=== PATIENT | female | born 1945 ===

== ENCOUNTER 2017-05-03 18:35 | Inpatient (IN) | payer OTHER, MEDICAID ==
[2017-05-03] MEDS ORDERED: Digoxin 500 mcg/2ml (0.5 mg/2ml) Inj ONE (18:58)
[2017-05-03] MEDS ORDERED: Sodium Chloride 0.9% 1,000 ML IV STA (18:58)
[2017-05-03] MEDS ORDERED: Digoxin 500 mcg/2ml (0.5 mg/2ml) Inj IVP STA (18:59)
[2017-05-03 19:27] LABS: BASO # 0.1 K/uL (0.0-0.2); BASO % 0.6 % (0.0-2.0); EOS # 0.1 K/uL (0.0-0.7); EOS % 0.5 % (0.0-4.0); HEMATOCRIT 36.3 % (34.0-47.0); LYMPH # 2.5 K/uL (1.0-4.3); LYMPH % 24.9 % (20.0-40.0); MEAN CELL VOLUME 86.3 fl (81.0-99.0); MEAN CORPUSCULAR HEMOGLOBIN 28.5 pg (27.0-31.0); MEAN PLATELET VOLUME 8.3 fl (7.2-11.7); MONO # 0.7 K/uL (0.0-0.8); MONO % 6.9 % (0.0-10.0); NEUT # 6.8 K/uL (1.8-7.0); NEUT % 67.1 % (50.0-75.0); NRBC % 0.1 % (0.0-0.0); RED CELL DISTRIBUTION WIDTH 12.3 % (11.5-14.5); WHITE BLOOD COUNT 10.2 K/uL (4.8-10.8)
[2017-05-03 19:37] LABS: ALB/GLOB RATIO 1.4 (1.0-2.1); ALKALINE PHOSPHATASE 87 U/L (38-126); ALT/SGPT 28 U/L (9-52); AST/SGOT 29 U/L (14-36); BILIRUBIN,TOTAL 0.5 mg/dl (0.2-1.3); BLOOD UREA NITROGEN 16 mg/dl (7-17); CALCIUM 9.3 mg/dL (8.4-10.2); CARBON DIOXIDE 24 mmol/L (22-30); CHLORIDE 101 mmol/L (98-107); GFR AFRICAN-AMERICAN 54; GLUCOSE,RANDOM 247 mg/dL (65-105); POTASSIUM 3.7 MMOL/L (3.6-5.0); SODIUM 136 mmol/l (132-148); TOTAL PROTEIN 7.1 G/DL (6.3-8.2)
--- NOTE | 2017-05-03 19:41 | ED PDOC ---
HPI: Chest Pain Time Seen by Provider: 05/03/17 18:57 Chief Complaint (Nursing): Palpitations Chief Complaint (Provider): Palpitations History Per: Patient History/Exam Limitations: no limitations Onset/Duration Of Symptoms: Hrs Current Symptoms Are (Timing): Still Present Additional Complaint(s): Kell Villela, a 72 year old female, who has a past medical histroy of diabetes, hyperlipidemia and stroke presents to the ED with palpitations. The patient states that she was at religious for several hours when her symptoms developed. She reports that she is eating, drinking and urinating okay. Denies nausea, vomiting, chest pain, shortness of breath. PMD: Neha Faustin - Risk Factors TAD Risk Factors: Pos: Hypertension Past Medical History Reviewed: Historical Data, Nursing Documentation, Vital Signs Vital Signs: Last Vital Signs Temp 97.6 F 05/05/17 16:07 Pulse 69 05/05/17 16:07 Resp 20 05/05/17 16:07 BP 120/76 05/05/17 16:07 Pulse Ox 97 05/05/17 16:07 - Medical History PMH: Asthma, Atrial Fibrillation, CHF, HTN, Hyperlipidemia, Osteoporosis - Surgical History Surgical History: No Surg Hx - Family History Family History: States: Unknown Family Hx - Social History Current smoker - smoking cessation education provided: No Ex-Smoker (has not smoked in the last 12 months): No Alcohol: None Drugs: Denies - Home Medications Home Medications: Ambulatory Orders Medication Instructions Recorded Calcium Carbonate/Vitamin D3 1 tab PO DAILY 05/03/17 [Calcium 600 + Vit D Tablet] Metoprolol Succinate 50 mg PO DAILY 05/03/17 Multivitamin [Multivitamins] 1 each PO DAILY 05/03/17 Pantoprazole Sodium [Protonix] 40 mg PO DAILY 05/03/17 Albuterol Sulfate [Proair 90 mcg IH PRN 05/05/17 Respiclick] Alendronate [Fosamax] 70 mg PO QWK #4 tab 05/05/17 Apixaban [Eliquis] 5 mg PO BID #60 tab 05/05/17 Aspirin [Ecotrin] 81 mg PO DAILY #30 tabec 05/05/17 Atorvastatin [Lipitor] 80 mg PO HS #30 tab 05/05/17 Chlorthalidone [Hygroton] 25 mg PO DAILY #30 tab 05/05/17 Fluticasone Propionate [Flovent 1 spray IH DAILY #30 blst.w.dev 05/05/17 Diskus] GlipiZIDE [Glucotrol] 5 mg PO DAILY #30 tab 05/05/17 Losartan [Cozaar] 25 mg PO DAILY #30 tab 05/05/17 Metformin HCl [Glucophage] 1,000 mg PO BID #60 tablet 05/05/17 Metoprolol Succinate [Toprol XL] 50 mg PO DAILY #30 tab 05/05/17 Multimineral/Multivitamin 1 tab PO DAILY tab 05/05/17 [Therapeutic-M Tab] Nitroglycerin [Nitrostat] 0.4 mg SL PRN 05/05/17 - Allergies Allergies/Adverse Reactions: Allergies Allergy/AdvReac Type Severity Reaction Status Date / Time pollen extracts Allergy ITCHING Verified 05/03/17 18:38 Review of Systems ROS Statement: Except As Marked, All Systems Reviewed And Found Negative Constitutional: Positive for: Weakness Cardiovascular: Positive for: Palpitations, Light Headedness. Negative for: Chest Pain Respiratory: Negative for: Shortness of Breath Gastrointestinal: Negative for: Nausea, Vomiting Physical Exam - Reviewed Nursing Documentation Reviewed: Yes Vital Signs Reviewed: Yes - Physical Exam Appears: Positive for: Non-toxic, No Acute Distress Head Exam: Positive for: ATRAUMATIC, NORMAL INSPECTION, NORMOCEPHALIC Skin: Positive for: Normal Color, Warm, Dry. Negative for: Rash Eye Exam: Positive for: Normal appearance, EOMI, PERRL. Negative for: Periorbital tenderness ENT: Positive for: Normal ENT Inspection. Negative for: Nasal Congestion, Tonsillar Exudate Neck: Positive for: Normal, Painless ROM, Supple Cardiovascular/Chest: Positive for: Regular Rate, Rhythm (Variable between 130- 180). Negative for: Tachycardia Respiratory: Positive for: Normal Breath Sounds. Negative for: Rales, Rhonchi, Wheezing, Respiratory Distress Gastrointestinal/Abdominal: Positive for: Normal Exam, Bowel Sounds, Soft. Negative for: Guarding, Rebound Back: Positive for: Normal Inspection. Negative for: L CVA Tenderness, R CVA Tenderness Extremity: Positive for: Normal ROM. Negative for: Tenderness, Pedal Edema, Deformity, Swelling Lymphatic: Positive for: Normal Exam. Negative for: Adenopathy Neurologic/Psych: Positive for: Alert, Oriented, Gait - Laboratory Results Result Diagrams: 05/05/17 05:30 05/05/17 05:30 - ECG O2 Sat by Pulse Oximetry: 98 (RA) Pulse Ox Interpretation: Normal - Critical Care Total Time (In Min): 30 Comments: initial evaluation of patient with symptomatic tachycardia Medical Decision Making Medical Decision Makin Initial Impression: 72 year old female presenting with rapid atrial fibrillation Initial Plan: * EKG * CMP * Thyroid Stimulating hormone * Troponin * Udip * CBC * Partial thromboplastin * Prothrombin time * CXR * Lanoxin 0.5mg IVP * NS 1000mls IV 1000mls/hr * Accucheck * Reevaluation Patient will be endorsed to Dr. Kevin at 1900. Scribe Attestation Documented by Rita Donaldson acting as a scribe for Zoe Lemos MD. Provider Attestation All medical record entries made by the Scribe were at my direction and personally dictated by me. I have reviewed the chart and agree that the record accurately reflects my personal performance of the history, physical exam, medical decision making, and the department course for this patient. I have also personally directed, reviewed, and agree with the discharge instructions and disposition. Disposition - Clinical Impression Clinical Impression: Palpitations, Supraventricular arrhythmia - Patient ED Disposition Is Patient to be Admitted: Transfer of Care Counseled Patient/Family Regarding: Studies Performed - Disposition Disposition: Transfer of Care Disposition Time: 19:00 Condition: STABLE Patient Signed Over To: Debra Kevin Present On Arrival: None
[2017-05-03 19:43] LABS: PARTIAL THROMBOPLASTIN TIME 27.9 Seconds (25.6-37.1)
--- NOTE | 2017-05-03 20:03 | ED PDOC ---
- Laboratory Results Result Diagrams: 05/03/17 19:16 05/03/17 19:16 - ECG O2 Sat by Pulse Oximetry: 98 (RA) Pulse Ox Interpretation: Normal Medical Decision Making Medical Decision Making: Patient signed out to provider at [address] Lemos pending labs and final ED disposition. 2105 Sugars are slightly elevated. Patient currently on plavix but no other anticoagulants. Patent is currently stil in Afib around 120bpm. Cardizem will be ordered for the patient. All her doctor's are in [place] therefore will be admitted under medical service. Patient reports that she feels better than she did earlier. 2158 Patient is back in normal sinus rhythm at 74bpm. Scribe Attestation Documented by Rita Donaldson acting as a scribe for Debra Kevin MD. Provider Attestation All medical record entries made by the Scribe were at my direction and personally dictated by me. I have reviewed the chart and agree that the record accurately reflects my personal performance of the history, physical exam, medical decision making, and the department course for this patient. I have also personally directed, reviewed, and agree with the discharge instructions and disposition. Disposition - Clinical Impression Clinical Impression: Palpitations, Supraventricular arrhythmia - POA Present On Arrival: None - Disposition Disposition: Admitted as In-Patient Disposition Time: 20:00 Condition: STABLE
[2017-05-03 20:12] LABS: THYROID STIMULATING HORMONE 1.35 mIU/ML (0.46-4.68)
[2017-05-03] MEDS ORDERED: Enoxaparin 100 mg Syringe SC STA (21:15)
--- NOTE | 2017-05-03 22:02 | CP.PCM.HP ---
History of Present Illness - History of Present Illness History of Present Illness: PCP: Neha Faustin (Not on staff Chief complaint: Palpitations HPI: 72 years old female who did not taken any of her medications on the day of admission, except Aspirin, came with sudden unset of severe Palpitations at her home after returning from a [employer]. She referred feeling very hot with chest pressure and SOB. The palpitation was not relieved with her normal method of deep inspiration, so the EMS was called. The patient has hx of DM II, HTN, CHF, CAD and Atrial Fibrillation for which her Anticoagulant was stopped. She last saw her Doctor 2 days ago and was given a new prescription for anticoagulant. In the ED her Heart Rate was 160s. She was given IV Digoxin, Bolus Cardizem. Her heart rate reduced and the A Fib converted to Sinus rhythm. PMH: Asthma, A Fib; CHF; HTN; CAD: HLD; Osteoporosis; GERD; Osteoporesis; DM II; PSH: Right Total Shoulder Replacement SH: Never Smoked; No alcohol ingestion; No illegal drug use; Live with Daughters ; ambulate with Cane FH: States: Unknown Family Hx Allergies: NKDA Pollen extracts Present on Admission - Present on Admission Any Indicators Present on Admission: Yes History of DVT/PE: No History of Uncontrolled Diabetes: Yes Urinary Catheter: No Decubitus Ulcer Present: No Review of Systems - Constitutional Constitutional: Headache. absent: Anorexia, Chills, Fever, Lethargy - EENT Eyes: Requires Corrective Lenses. absent: Diplopia, Floaters, Photophobia, Sees Flashes Ears: absent: Decreased Hearing, Ear Pain, Tinnitus Nose/Mouth/Throat: absent: Epistaxis, Nasal Congestion, Nasal Discharge, Sinus Pain, Sinus Pressure - Cardiovascular Cardiovascular: Dyspnea. absent: Edema Additional comments: Chest pressure - Respiratory Respiratory: Dyspnea. absent: Cough, Wheezing, Chest Congestion - Gastrointestinal Gastrointestinal: Diarrhea. absent: Nausea, Vomiting - Genitourinary Genitourinary: absent: Dysuria, Flank Pain, Hematuria, Urinary Frequency, Freq UTI - Musculoskeletal Musculoskeletal: Arthralgias, Back Pain, Numbness. absent: Joint Swelling, Muscle Weakness - Integumentary Integumentary: absent: Pruritus, Rash, Skin Ulcer, Sores, Striae, Swelling - Neurological Neurological: Numbness, Headaches, Paresthesias. absent: Confusion, Focal Weakness, Weakness Additional comments: Numbness to left chin for few days - Psychiatric Psychiatric: absent: Depression, Panic Attacks - Endocrine Endocrine: absent: Palpitations, Polydipsia, Polyphagia, Polyuria - Hematologic/Lymphatic Hematologic: absent: Easy Bleeding, Easy Bruising Past Patient History - Past Medical History & Family History Past Medical History?: Yes - Past Social History Smoking Status: Never Smoked Chewing Tobacco Use: No Cigar Use: No Alcohol: None Drugs: Denies Home Situation {Lives}: With Family - CARDIAC Hx Atrial Fibrillation: Yes Hx Congestive Heart Failure: Yes Hx Hypertension: Yes - PULMONARY Hx Asthma: Yes - NEUROLOGICAL Hx Neurological Disorder: No - HEENT Hx Cataracts: No - RENAL Hx Chronic Kidney Disease: No - ENDOCRINE/METABOLIC Hx Diabetes Mellitus Type 2: Yes - HEMATOLOGICAL/ONCOLOGICAL Hx Blood Transfusions: No - INTEGUMENTARY Hx Dermatological Problems: No - MUSCULOSKELETAL/RHEUMATOLOGICAL Hx Back Pain: Yes Hx Osteoporosis: Yes Other/Comment: Compressed Lumbar spine - GASTROINTESTINAL Hx Gastroesophageal Reflux: Yes - GENITOURINARY/GYNECOLOGICAL Hx Genitourinary Disorders: No - PSYCHIATRIC Hx Psychophysiologic Disorder: No Hx Substance Use: No - SURGICAL HISTORY Other/Comment: Right shoulder replacement - ANESTHESIA Hx Anesthesia: Yes Hx Anesthesia Reactions: No Meds Allergies/Adverse Reactions: Allergies Allergy/AdvReac Type Severity Reaction Status Date / Time pollen extracts Allergy ITCHING Verified 05/03/17 18:38 Physical Exam - Constitutional Appears: No Acute Distress - Head Exam Head Exam: ATRAUMATIC, NORMAL INSPECTION, NORMOCEPHALIC - Eye Exam Eye Exam: EOMI, Normal appearance Pupil Exam: NORMAL ACCOMODATION, PERRL - ENT Exam ENT Exam: Mucous Membranes Moist, Normal Exam, Normal External Ear Exam - Neck Exam Neck exam: Positive for: Full Rom, Normal Inspection. Negative for: Lymphadenopathy, Tenderness - Respiratory Exam Respiratory Exam: Clear to Auscultation Bilateral. absent: Rales, Rhonchi, Wheezes - Cardiovascular Exam Cardiovascular Exam: REGULAR RHYTHM, RRR, +S1, +S2. absent: Gallop, JVD - GI/Abdominal Exam GI & Abdominal Exam: Normal Bowel Sounds, Soft. absent: Mass, Organomegaly, Tenderness - Rectal Exam Rectal Exam: Deferred - Extremities Exam Extremities exam: Positive for: full ROM, normal inspection - Back Exam Back exam: NORMAL INSPECTION. absent: CVA tenderness (L), CVA tenderness (R) - Neurological Exam Neurological exam: Alert, CN II-XII Intact, Oriented x3, Reflexes Normal - Psychiatric Exam Psychiatric exam: Anxious, Depressed, Flat Affect, Normal Affect, Normal Mood - Skin Skin Exam: Dry, Intact, Normal Color, Warm Results - Vital Signs Recent Vital Signs: Last Vital Signs Temp 98.0 F 05/03/17 18:38 Pulse 87 05/03/17 21:35 Resp 17 05/03/17 21:35 BP 144/87 05/03/17 21:35 Pulse Ox 98 05/03/17 21:59 - Labs Result Diagrams: 05/03/17 19:16 05/03/17 19:16 Labs: Laboratory Results - last 24 hr 05/03/17 05/03/17 05/03/17 19:16 19:16 19:16 WBC 10.2 RBC 4.21 Hgb 12.0 Hct 36.3 MCV 86.3 MCH 28.5 MCHC 33.0 RDW 12.3 Plt Count 233 MPV 8.3 Neut % (Auto) 67.1 Lymph % (Auto) 24.9 [place] % (Auto) 6.9 Eos % (Auto) 0.5 Baso % (Auto) 0.6 Neut # 6.8 Lymph # 2.5 [place] # 0.7 Eos # 0.1 Baso # 0.1 PT 11.3 INR 1.1 APTT 27.9 Sodium 136 Potassium 3.7 Chloride 101 Carbon Dioxide 24 Anion Gap 15 BUN 16 Creatinine 1.2 Est GFR ( Amer) 54 Est GFR (Non-Af Amer) 44 Random Glucose 247 H Calcium 9.3 Total Bilirubin 0.5 AST 29 ALT 28 Alkaline Phosphatase 87 Troponin I < 0.0120 Total Protein 7.1 Albumin 4.1 Globulin 3.0 Albumin/Globulin Ratio 1.4 TSH 3rd Generation 1.35 - EKG Data EKG comments: 1. EKG Atrial Fibrillation 162/min 2. EKG NSR 74/min - Imaging and Cardiology Chest x-ray Status: Image reviewed by me Additional comment: No infiltrate Assessment & Plan - Assessment and Plan (Free Text) Assessment: #. Atrial Fibrillation with Rapid ventricular Rate #. HTN #. DM II with Hyperglycemia #. GERD #. CAD Plan: 72 years old female with hx of A Fib, who has not taken any of her medications today except Aspirin, comes with sudden unset of severe Palpitations associated with SOB and chest pressure, at her home after returning from a [employer]. In the ED her Heart Rate was 160s. She was given IV Digoxin, Bolus Cardizem. Her heart rate reduced and the A Fib converted to Sinus rhythm. #. Atrial Fibrillation with Rapid ventricular Rate, now converted to Sinus Rhythm - Consult Dr Husain - Observe in Telemetry - Therapeutic Lovenox ( Family has Prescription to buy Anticoagulant) -Metoprolol 50mg PO Daily -Troponin - ECHO #. HTN - Metoprolol/Cozaar #. DM II with Hyperglycemia - Diabetic Diet - Glucotrol/Metformin - Regular Insulin Sliding Scale #. GERD - Protonix #. CAD - ASA - lipitor - Plavix - Metformin #. DVT prophylaxis- Patient on Lovenox #. Code Status: Full - Date & Time Date: 05/03/17 Time: 22:02
[2017-05-03 22:18] LABS: RBC URINE 3 /hpf (0-3); URINE BILIRUBIN NEGATIVE (NEGATIVE); URINE BLOOD NEGATIVE (NEGATIVE); URINE COLOR STRAW (YELLOW); URINE GLUCOSE (UA) 50 mg/dL (Normal); URINE KETONE NEGATIVE (NEGATIVE); URINE LEUKOCYTE ESTERASE SMALL Leu/uL (Negative); URINE PROTEIN NEGATIVE (NEGATIVE); URINE UROBILINOGEN 0.2-1.0 mg/dL (0.2-1.0); WBC URINE 9 /hpf (0-5)
[2017-05-03] MEDS ORDERED: Metoprolol Succinate 50 mg XL Tab PO SCH (23:02)
[2017-05-03] MEDS ORDERED: ALENDRONATE 70 MG TAB PO SCH (23:15)
[2017-05-03] MEDS ORDERED: Patient's Own Med (Atorvastatin [Lipitor] 80 MG) PO SCH (23:15)
[2017-05-04] MEDS ORDERED: Pneumococcal 23-Valent Vaccine IM ONE (06:00)
[2017-05-04 06:07] LABS: BASO # 0.1 K/uL (0.0-0.2); BASO % 0.8 % (0.0-2.0); EOS # 0.1 K/uL (0.0-0.7); EOS % 1.2 % (0.0-4.0); LYMPH # 2.4 K/uL (1.0-4.3); MEAN CELL VOLUME 87.5 fl (81.0-99.0); MEAN CORPUSCULAR HEMOGLOBIN 28.2 pg (27.0-31.0); MEAN CORPUSCULAR HGB CONC 32.3 g/dL (33.0-37.0); MEAN PLATELET VOLUME 7.7 fl (7.2-11.7); MONO # 0.4 K/uL (0.0-0.8); MONO % 7.4 % (0.0-10.0); NEUT # 3.1 K/uL (1.8-7.0); NEUT % 50.6 % (50.0-75.0); NRBC % 0.1 % (0.0-0.0); RED CELL DISTRIBUTION WIDTH 12.4 % (11.5-14.5); WHITE BLOOD COUNT 6.1 K/uL (4.8-10.8)
--- NOTE | 2017-05-04 08:11 | RAD ---
PROCEDURE: CHEST RADIOGRAPH, 1 VIEW HISTORY: palpitations COMPARISON: None available. FINDINGS: LUNGS: Clear. PLEURA: No pneumothorax or pleural fluid seen. CARDIOVASCULAR: No radiographic findings to suggest acute or significant cardiovascular disease. OSSEOUS STRUCTURES: No significant abnormalities. Incompletely visualize right shoulder prosthesis. VISUALIZED UPPER ABDOMEN: Normal. OTHER FINDINGS: None. IMPRESSION: No active disease. No preliminary report provided by emergency department personnel.
[2017-05-04] MEDS: Enoxaparin 100 mg Syringe SC SCH ×3 (08:36→21:16)
[2017-05-04] MEDS: Metoprolol Succinate 50 mg XL Tab PO SCH ×2 (08:55→16:06)
[2017-05-04] MEDS: Pantoprazole 40 mg EC Tab PO SCH ×2 (08:56→16:06)
[2017-05-04] MEDS: Multivitamin With Minerals Tab PO SCH ×2 (08:56→16:06)
[2017-05-04] MEDS: Insulin Regular 100 units/ml SC SCH ×4 (08:57→21:16)
[2017-05-04] MEDS ORDERED: MULTIVITAMIN PO SCH (09:00)
--- NOTE | 2017-05-04 12:46 | CP.PCM.PN ---
Subjective - Date & Time of Evaluation Date of Evaluation: 05/04/17 Time of Evaluation: 12:46 - Subjective Subjective: pt seen and examined bedside. stresstest per cardiology today no active chest pain at this time afib rate controlled HD STABLE NAD Objective - Vital Signs/Intake and Output Vital Signs (last 24 hours): Temp Pulse Resp BP Pulse Ox 97.4 F L 65 20 116/74 99 05/04/17 08:17 05/04/17 09:00 05/04/17 08:17 05/04/17 08:17 05/04/17 08:17 GEN: WDWN, alert, cooperative HEENT: NCAT, PERRL, EOMI Neck: supple, no lymphadenopathy CARDIO: +S1S2, RR, NO M/R/G LUNG: CTAB, NO W/R/R ABD: soft, NT, ND, no masses, no HSM EXT: no edema, pedal pulses Neuro: AAOx3, Strength equal, bilateral UE/LE Psych: normal mood, normal affect - Medications Medications: Current Medications Alendronate Sodium (Fosamax) 70 mg PO QWK [facility] Aspirin (Ecotrin) 81 mg PO DAILY [facility] Atorvastatin Calcium (Lipitor) 80 mg PO HS [facility] Last Admin: 05/04/17 01:55 Dose: 80 mg Chlorthalidone (Hygroton) 25 mg PO DAILY [facility] Clopidogrel Bisulfate (Plavix) 75 mg PO DAILY [facility] Enoxaparin Sodium (Lovenox) 90 mg SC Q12 LIZETH PRN Reason: Protocol Glipizide (Glucotrol) 5 mg PO DAILY [facility] Insulin Human Regular (Humulin R) 0 units SC ACHS [facility] PRN Reason: Protocol Last Admin: 05/04/17 08:57 Dose: Not Given Losartan Potassium (Cozaar) 25 mg PO DAILY [facility] Metformin HCl (Glucophage) 1,000 mg PO BID [facility] Metoprolol Succinate (Toprol Xl) 50 mg PO DAILY [facility] Multivitamins/Minerals (Therapeutic-M Tab) 1 tab PO DAILY [facility] Pantoprazole Sodium (Protonix Ec Tab) 40 mg PO DAILY [facility] - Labs Labs: 05/04/17 05:30 05/03/17 19:16 PT 11.3 Seconds (9.8-13.1) 05/03/17 19:16 INR 1.1 (0.9-1.2) 05/03/17 19:16 APTT 27.9 Seconds (25.6-37.1) 05/03/17 19:16 Assessment and Plan - Assessment and Plan (Free Text) Plan: 72 years old female with hx of A Fib, who has not taken any of her medications today except Aspirin, comes with sudden unset of severe Palpitations associated with SOB and chest pressure, at her home after returning from a [employer]. In the ED her Heart Rate was 160s. She was given IV Digoxin, Bolus Cardizem. Her heart rate reduced and the A Fib converted to Sinus rhythm. #. Atrial Fibrillation with Rapid ventricular Rate, now converted to Sinus Rhythm - Consult Dr Husain, await further recs - ADMIT TO tele, STRESS test today per cardiology - Therapeutic Lovenox ( Family has Prescription to buy Anticoagulant) -Metoprolol 50mg PO Daily -Troponin - ECHO #. HTN - Metoprolol/Cozaar #. DM II with Hyperglycemia - Diabetic Diet - Glucotrol/Metformin - Regular Insulin Sliding Scale #. GERD - Protonix #. CAD - ASA - lipitor - Plavix - Metformin #. DVT prophylaxis- Patient on Lovenox #. Code Status: Full
--- NOTE | 2017-05-04 17:36 | CARD ---
APPROVED REPORT EKG Measurement Heart [id number] <Conclusion> Normal sinus rhythm Possible old inferior wall infarction
--- NOTE | 2017-05-04 17:37 | CARD ---
APPROVED REPORT EKG Measurement Heart [id number] <Conclusion> Atrial fibrillation with rapid ventricular response ST & T wave abnormality, consider inferior ischemia Abnormal ECG
--- NOTE | 2017-05-04 20:35 | CARD ---
APPROVED REPORT EXAM: Two-dimensional and M-mode echocardiogram with Doppler and color Doppler. Other Information Quality : GoodRhythm : NSR INDICATION Congestive Heart Failure ATRIAL FIBRILLATION WITH RAPID VENTRICULAR RESPONSE 2D DIMENSIONS IVSd0.74 (0.7-1.1cm)LVDd4.74 (3.9-5.9cm) LVOT Diameter2.22 (1.8-2.4cm)PWd0.75 (0.7-1.1cm) IVSs1.12 (0.8-1.2cm)LVDs3.45 (2.5-4.0cm) FS (%) 27.3 %PWs1.09 (0.8-1.2cm) M-Mode DIMENSIONS Left Atrium (MM)2.81 (2.5-4.0cm)IVSd0.72 (0.7-1.1cm) Aortic Root3.06 (2.2-3.7cm)LVDd5.38 (4.0-5.6cm) Aortic Cusp Exc.2.01 (1.5-2.0cm)PWd0.97 (0.7-1.1cm) IVSs1.05 cmFS (%) 34 % LVDs3.56 (2.0-3.8cm)PWs1.13 cm Mitral Valve MV E Mnxidkfh13.8cm/sMV DECEL [id number] A Qvprcnle84.6cm/s MV TRL36biJ/A ratio0.8MVA (PHT)3.18cm2 TDI Lateral E' Peak V10.76cm/sMedial E' Peak V4.73cm/sE/Lateral E'4.8 E/Medial E'11.0 Pulmonary Valve PV Peak Bxtvxfah91.1cm/s Tricuspid Valve TR Peak Atjkymmf60je/sRAP [id number] Peak Gr.3mmHg [id number] LEFT VENTRICLE The left ventricle is normal in size. There is normal left ventricular wall thickness. Left ventricle systolic function is low normal. The Ejection Fraction is - 55%. There is normal LV segmental wall motion. Transmitral Doppler flow pattern is Grade I-abnormal relaxation pattern. No left ventricle thrombus noted on this study. There is no ventricular septal defect visualized. There is no left ventricular aneurysm. There is no mass noted in the left ventricle. RIGHT VENTRICLE The right ventricle is normal size. There is normal right ventricular wall thickness. The right ventricular systolic function is normal. ATRIA The left atrium is mildly dilated on the 2D study. The right atrium size is normal. The interatrial septum is intact with no evidence for an atrial septal defect. AORTIC VALVE The aortic valve is normal in structure and function. No aortic regurgitation is present. There is no aortic valvular stenosis. MITRAL VALVE The mitral valve is normal in structure and function. There is no evidence of mitral valve prolapse. There is no mitral valve stenosis. There is no mitral valve regurgitation noted. TRICUSPID VALVE The tricuspid valve is normal in structure and function. There is no tricuspid valve regurgitation noted. There is no tricuspid valve prolapse or vegetation. There is no tricuspid valve stenosis. PULMONIC VALVE The pulmonic valve is not well visualized. There is no pulmonic valvular regurgitation. GREAT VESSELS The aortic root is normal in size. The IVC was not visualized. PERICARDIAL EFFUSION The pericardium appears normal. There is no pleural effusion. <Conclusion> The left ventricle is normal in size and wall thickness. Left ventricle systolic function is low normal. The Ejection Fraction is - 55%. The left atrium is mildly dilated on the 2D study. The mitral, aortic and tricuspid valves are normal.
--- NOTE | 2017-05-04 21:08 | CP.PCM.CON ---
Past Patient History - Past Medical History & Family History Past Medical History?: Yes - Past Social History Smoking Status: Never Smoked Chewing Tobacco Use: No Cigar Use: No Alcohol: None Drugs: Denies Home Situation {Lives}: With Family - CARDIAC Hx Atrial Fibrillation: Yes Hx Congestive Heart Failure: Yes Hx Hypertension: Yes - PULMONARY Hx Asthma: Yes - NEUROLOGICAL Hx Neurological Disorder: No - HEENT Hx Cataracts: No - RENAL Hx Chronic Kidney Disease: No - ENDOCRINE/METABOLIC Hx Diabetes Mellitus Type 2: Yes - HEMATOLOGICAL/ONCOLOGICAL Hx Blood Transfusions: No - INTEGUMENTARY Hx Dermatological Problems: No - MUSCULOSKELETAL/RHEUMATOLOGICAL Hx Back Pain: Yes Hx Osteoporosis: Yes Other/Comment: Compressed Lumbar spine - GASTROINTESTINAL Hx Gastroesophageal Reflux: Yes - GENITOURINARY/GYNECOLOGICAL Hx Genitourinary Disorders: No - PSYCHIATRIC Hx Psychophysiologic Disorder: No Hx Substance Use: No - SURGICAL HISTORY Other/Comment: Right shoulder replacement - ANESTHESIA Hx Anesthesia: Yes Hx Anesthesia Reactions: No Meds Allergies/Adverse Reactions: Allergies Allergy/AdvReac Type Severity Reaction Status Date / Time pollen extracts Allergy ITCHING Verified 05/03/17 18:38 - Medications Medications: Current Medications Alendronate Sodium (Fosamax) 70 mg PO QWK [facility] Aspirin (Ecotrin) 81 mg PO DAILY [facility] Last Admin: 05/04/17 16:07 Dose: 81 mg Atorvastatin Calcium (Lipitor) 80 mg PO HS [facility] Last Admin: 05/04/17 01:55 Dose: 80 mg Chlorthalidone (Hygroton) 25 mg PO DAILY [facility] Last Admin: 05/04/17 16:07 Dose: 25 mg Clopidogrel Bisulfate (Plavix) 75 mg PO DAILY [facility] Last Admin: 05/04/17 16:06 Dose: 75 mg Enoxaparin Sodium (Lovenox) 90 mg SC Q12 [facility] PRN Reason: Protocol Last Admin: 05/04/17 08:36 Dose: 90 mg Glipizide (Glucotrol) 5 mg PO DAILY [facility] Last Admin: 05/04/17 16:07 Dose: Not Given Insulin Human Regular (Humulin R) 0 units SC ACHS [facility] PRN Reason: Protocol Last Admin: 05/04/17 17:07 Dose: Not Given Losartan Potassium (Cozaar) 25 mg PO DAILY [facility] Last Admin: 05/04/17 16:07 Dose: 25 mg Metformin HCl (Glucophage) 1,000 mg PO BID [facility] Last Admin: 05/04/17 16:06 Dose: 1,000 mg Metoprolol Succinate (Toprol Xl) 50 mg PO DAILY [facility] Last Admin: 05/04/17 16:06 Dose: 50 mg Multivitamins/Minerals (Therapeutic-M Tab) 1 tab PO DAILY [facility] Last Admin: 05/04/17 16:06 Dose: 1 tab Pantoprazole Sodium (Protonix Ec Tab) 40 mg PO DAILY [facility] Last Admin: 05/04/17 16:06 Dose: 40 mg Results - Vital Signs Recent Vital Signs: Last Vital Signs Temp 98.3 F 05/04/17 19:37 Pulse 73 05/04/17 19:37 Resp 20 05/04/17 19:37 BP 134/78 05/04/17 19:37 Pulse Ox 99 05/04/17 19:37 - Labs Result Diagrams: 05/04/17 05:30 05/03/17 19:16 Labs: Laboratory Results - last 24 hr 05/03/17 05/03/17 05/04/17 19:10 21:45 05:30 WBC RBC Hgb Hct MCV MCH MCHC RDW Plt Count MPV Neut % (Auto) Lymph % (Auto) [place] % (Auto) Eos % (Auto) Baso % (Auto) Neut # Lymph # [place] # Eos # Baso # POC Glucose (mg/dL) 272 H Troponin I 0.0140 Urine Color Straw Urine Clarity Slighty-cloudy Urine pH 6.0 Ur Specific [place] 1.006 Urine Protein Negative Urine Glucose (UA) 50 Urine Ketones Negative Urine Blood Negative Urine Nitrate Negative Urine Bilirubin Negative Urine Urobilinogen 0.2-1.0 Ur Leukocyte Esterase Small Urine RBC (Auto) 3 Urine Microscopic WBC 9 H Ur Squamous Epith Cells 2 Hyaline Casts 0-2 05/04/17 05/04/17 05/04/17 05:30 05:33 13:28 WBC 6.1 RBC 3.89 Hgb 11.0 L Hct 34.0 MCV 87.5 MCH 28.2 MCHC 32.3 L RDW 12.4 Plt Count 195 MPV 7.7 Neut % (Auto) 50.6 Lymph % (Auto) 40.0 [place] % (Auto) 7.4 Eos % (Auto) 1.2 Baso % (Auto) 0.8 Neut # 3.1 Lymph # 2.4 [place] # 0.4 Eos # 0.1 Baso # 0.1 POC Glucose (mg/dL) 100 114 H Troponin I Urine Color Urine Clarity Urine pH Ur Specific [place] Urine Protein Urine Glucose (UA) Urine Ketones Urine Blood Urine Nitrate Urine Bilirubin Urine Urobilinogen Ur Leukocyte Esterase Urine RBC (Auto) Urine Microscopic WBC Ur Squamous Epith Cells Hyaline Casts 05/04/17 13:45 WBC RBC Hgb Hct MCV MCH MCHC RDW Plt Count MPV Neut % (Auto) Lymph % (Auto) [place] % (Auto) Eos % (Auto) Baso % (Auto) Neut # Lymph # [place] # Eos # Baso # POC Glucose (mg/dL) Troponin I < 0.0120 Urine Color Urine Clarity Urine pH Ur Specific [place] Urine Protein Urine Glucose (UA) Urine Ketones Urine Blood Urine Nitrate Urine Bilirubin Urine Urobilinogen Ur Leukocyte Esterase Urine RBC (Auto) Urine Microscopic WBC Ur Squamous Epith Cells Hyaline Casts
[2017-05-05 06:26] LABS: BASO # 0.1 K/uL (0.0-0.2); BASO % 0.6 % (0.0-2.0); EOS % 0.5 % (0.0-4.0); HEMATOCRIT 36.3 % (34.0-47.0); LYMPH # 2.2 K/uL (1.0-4.3); LYMPH % 24.5 % (20.0-40.0); MEAN CELL VOLUME 86.6 fl (81.0-99.0); MEAN CORPUSCULAR HEMOGLOBIN 28.4 pg (27.0-31.0); MEAN CORPUSCULAR HGB CONC 32.8 g/dL (33.0-37.0); MEAN PLATELET VOLUME 8.1 fl (7.2-11.7); MONO # 0.5 K/uL (0.0-0.8); MONO % 5.1 % (0.0-10.0); NEUT # 6.2 K/uL (1.8-7.0); NEUT % 69.3 % (50.0-75.0); RED CELL DISTRIBUTION WIDTH 12.7 % (11.5-14.5)
[2017-05-05 06:39] LABS: MAGNESIUM 1.9 MG/DL (1.6-2.3); POTASSIUM 4.3 MMOL/L (3.6-5.0)
[2017-05-05] MEDS: Insulin Regular 100 units/ml SC SCH ×2 (06:47→12:40)
[2017-05-05 07:06] LABS: THYROID STIMULATING HORMONE 1.36 mIU/ML (0.46-4.68)
[2017-05-05] MEDS: Enoxaparin 100 mg Syringe SC SCH (10:00)
[2017-05-05] MEDS: Pantoprazole 40 mg EC Tab PO SCH (10:01)
[2017-05-05] MEDS: Multivitamin With Minerals Tab PO SCH (10:01)
[2017-05-05] MEDS: Metoprolol Succinate 50 mg XL Tab PO SCH (10:02)
--- NOTE | 2017-05-05 12:43 | CP.PCM.DIS ---
Provider - Provider Date of Admission: 05/04/17 16:25 Attending physician: Alex Schmitz Time Spent in preparation of Discharge (in minutes): 30 Diagnosis - Discharge Diagnosis (1) Afib Status: Acute (2) Palpitations Status: Acute Hospital Course - Lab Results Lab Results: Micro Results 05/03/17 21:45 Urine Urine Culture - Final 10-50,000 CFU/ML. MULTIPLE SPECIES. PROBABLE CONTAMINATION. Most Recent Lab Values WBC 9.0 K/uL (4.8-10.8) 05/05/17 05:30 RBC 4.20 Mil/uL (3.80-5.20) 05/05/17 05:30 Hgb 11.9 g/dL (12.0-16.0) L 05/05/17 05:30 Hct 36.3 % (34.0-47.0) 05/05/17 05:30 MCV 86.6 fl (81.0-99.0) 05/05/17 05:30 MCH 28.4 pg (27.0-31.0) 05/05/17 05:30 MCHC 32.8 g/dL (33.0-37.0) L 05/05/17 05:30 RDW 12.7 % (11.5-14.5) 05/05/17 05:30 Plt Count 222 K/uL (130-400) 05/05/17 05:30 MPV 8.1 fl (7.2-11.7) 05/05/17 05:30 Neut % (Auto) 69.3 % (50.0-75.0) 05/05/17 05:30 Lymph % (Auto) 24.5 % (20.0-40.0) 05/05/17 05:30 [place] % (Auto) 5.1 % (0.0-10.0) 05/05/17 05:30 Eos % (Auto) 0.5 % (0.0-4.0) 05/05/17 05:30 Baso % (Auto) 0.6 % (0.0-2.0) 05/05/17 05:30 Neut # 6.2 K/uL (1.8-7.0) 05/05/17 05:30 Lymph # 2.2 K/uL (1.0-4.3) 05/05/17 05:30 [place] # 0.5 K/uL (0.0-0.8) 05/05/17 05:30 Eos # 0.0 K/uL (0.0-0.7) 05/05/17 05:30 Baso # 0.1 K/uL (0.0-0.2) 05/05/17 05:30 PT 11.3 Seconds (9.8-13.1) 05/03/17 19:16 INR 1.1 (0.9-1.2) 05/03/17 19:16 APTT 27.9 Seconds (25.6-37.1) 05/03/17 19:16 Sodium 141 mmol/l (132-148) 05/05/17 05:30 Potassium 4.3 MMOL/L (3.6-5.0) 05/05/17 05:30 Chloride 104 mmol/L (98-107) 05/05/17 05:30 Carbon Dioxide 24 mmol/L (22-30) 05/05/17 05:30 Anion Gap 18 (10-20) 05/05/17 05:30 BUN 18 mg/dl (7-17) H 05/05/17 05:30 Creatinine 1.2 mg/dL (0.7-1.2) 05/05/17 05:30 Est GFR ( Amer) 54 05/05/17 05:30 Est GFR (Non-Af Amer) 44 05/05/17 05:30 POC Glucose (mg/dL) 123 mg/dL (65-110) H 05/05/17 11:46 Random Glucose 111 mg/dL (65-105) H 05/05/17 05:30 Calcium 9.0 mg/dL (8.4-10.2) 05/05/17 05:30 Magnesium 1.9 MG/DL (1.6-2.3) 05/05/17 05:30 Total Bilirubin 0.5 mg/dl (0.2-1.3) 05/03/17 19:16 AST 29 U/L (14-36) 05/03/17 19:16 ALT 28 U/L (9-52) 05/03/17 19:16 Alkaline Phosphatase 87 U/L (38-126) 05/03/17 19:16 Troponin I < 0.0120 ng/mL (0.00-0.120) 05/04/17 13:45 Total Protein 7.1 G/DL (6.3-8.2) 05/03/17 19:16 Albumin 4.1 g/dL (3.5-5.0) 05/03/17 19:16 Globulin 3.0 gm/dL (2.2-3.9) 05/03/17 19:16 Albumin/Globulin Ratio 1.4 (1.0-2.1) 05/03/17 19:16 Triglycerides 112 mg/DL (0-149) 05/05/17 05:30 Cholesterol 172 mg/dL (0-199) 05/05/17 05:30 LDL Cholesterol Direct 104 mg/dL (0-129) 05/05/17 05:30 HDL Cholesterol 43 MG/DL (30-70) 05/05/17 05:30 Free T4 1.08 ng/dL (0.78-2.19) 05/05/17 05:30 Total T3 1.17 nmol/L (1.49-2.60) L 05/05/17 05:30 TSH 3rd Generation 1.36 mIU/ML (0.46-4.68) 05/05/17 05:30 Urine Color Straw (YELLOW) 05/03/17 21:45 Urine Clarity Slighty-cloudy (Clear) 05/03/17 21:45 Urine pH 6.0 (5.0-8.0) 05/03/17 21:45 Ur Specific [place] 1.006 (1.003-1.030) 05/03/17 21:45 Urine Protein Negative mg/dL (NEGATIVE) 05/03/17 21:45 Urine Glucose (UA) 50 mg/dL (Normal) 05/03/17 21:45 Urine Ketones Negative mg/dL (NEGATIVE) 05/03/17 21:45 Urine Blood Negative (NEGATIVE) 05/03/17 21:45 Urine Nitrate Negative (NEGATIVE) 05/03/17 21:45 Urine Bilirubin Negative (NEGATIVE) 05/03/17 21:45 Urine Urobilinogen 0.2-1.0 mg/dL (0.2-1.0) 05/03/17 21:45 Ur Leukocyte Esterase Small [place]/uL (Negative) 05/03/17 21:45 Urine RBC (Auto) 3 /hpf (0-3) 05/03/17 21:45 Urine Microscopic WBC 9 /hpf (0-5) H 05/03/17 21:45 Ur Squamous Epith Cells 2 /hpf (0-5) 05/03/17 21:45 Hyaline Casts 0-2 /hpf (0-2) 05/03/17 21:45 - Hospital Course Hospital Course: 72 years old female with hx of A Fib, who has not taken any of her medications today except Aspirin, comes with sudden unset of severe Palpitations associated with SOB and chest pressure, at her home after returning from a [place]. In the ED her Heart Rate was 160s. She was given IV Digoxin, Bolus Cardizem. Her heart rate reduced and the A Fib converted to Sinus rhythm. Patient was seen and evaluated by Dr. Husain [employer] Lab Technician, Stress Test was negative, patient to be initiated on Eliquis and Asa, and to follow up with her internal sales engineer in [place] upon discharge. Atrial Fibrillation with Rapid ventricular Rate, now converted to Sinus Rhythm - Consult Dr Husain, await further recs - ADMIT TO tele, STRESS test neg - Therapeutic Lovenox and to start Eliquis upon discharge and follow up with home internal sales engineer - Metoprolol 50mg PO Daily - Troponin - ECHO HTN - Metoprolol/Cozaar DM II with Hyperglycemia - Diabetic Diet - Glucotrol/Metformin - Regular Insulin Sliding Scale GERD - Protonix CAD - ASA - lipitor - Plavix - Metformin DVT prophylaxis- Patient on Lovenox Code Status: Full Discharge Exam - Head Exam Head Exam: ATRAUMATIC, NORMAL INSPECTION, NORMOCEPHALIC Discharge Plan - Discharge Medications Prescriptions: Alendronate [Fosamax] 70 mg PO QWK #4 tab Apixaban [Eliquis] 5 mg PO BID #60 tab Aspirin [Ecotrin] 81 mg PO DAILY #30 tabec Atorvastatin [Lipitor] 80 mg PO HS #30 tab Chlorthalidone [Hygroton] 25 mg PO DAILY #30 tab Fluticasone Propionate [Flovent Diskus] 1 spray IH DAILY #30 blst.w.dev GlipiZIDE [Glucotrol] 5 mg PO DAILY #30 tab Losartan [Cozaar] 25 mg PO DAILY #30 tab Metformin HCl [Glucophage] 1,000 mg PO BID #60 tablet Metoprolol Succinate [Toprol XL] 50 mg PO DAILY #30 tab - Follow Up Plan Condition: STABLE Disposition: HOME/ ROUTINE Instructions: Atrial Fibrillation (DC)
[2017-05-05 16:07] VITALS: BP 120/76; PULSE 69; RESP 20; TEMP 97.6
[2017-05-06 07:18] VITALS: O2SAT 98
--- NOTE | 2017-05-06 16:14 | CARD ---
APPROVED REPORT Protocol: LEXISCAN Test Type: Stress Nuclear Medications: FOSOMAX 70M, ECOTRIN 81MG, LIPITOR 80MG, CHLORTHALIDONE 25MG , ENOXAPARIN 90MG, GLUCOTROL 5MG, METFORMIN 1, 000MG, METOPROLOL 50MG, PANTOPRAZOLE 40MG Medical History: Asthma, A fib, CHF, HTN, Osteoporosis, GERD, DM, Right total Shoulder REplacement, Target HR: 150 bpm Resting ECG: normal Resting Heart Rate: 62 bpm Resting Blood Pressure: 124/68mmHg submaximum (85%): 128 bpm PROCEDURE Pharmacologic stress testing was performed using 0.4mg per 5ml of regadenoson given intravenously over 7-10 seconds. POST EXERCISE Reason for Termination: Completed the test Target HR: No Max HR: 86 bpm 66% of Maximum Predicted HR: 150 bpm Exercise duration: 01:00 min:sec, 0 Stage Exercise capacity: 1.0METs Max Blood Pressure: 127/79mmHg Blood Pressure response to exercise: Pharmacological Heart Rate response to exercise: Pharmacological Chest Pain: No, none Angina index: 0 Arrhythmia: No, none ST Change: No, none Deviation: 0 mm Clinical Indications Under Appropriate Use Criteria chest pain Stress EKG Interpretation Normal pharmacological portion of the stress test. EXAM: Myocardial Perfusion REST/STRESS Image QualityGood Imaging Protocol The imaging protocol used to acquire images was Rest Tc-99m/stress Tc-99m 1 day Rest Spect myocardial perfusion imaging was performed in supine position 40 minutes following the injection of 10 mCi of Tc-99 Myoview. Time of rest injection: 8:04 Time of rest imagin:47 At peak stress, the patient was injected intravenously with 30mCi of Tc-99 tetrofosmin after an infusion time of minutes and seconds. Time of stress injection: 11:25 Time of stress imagin:20 Gated Stress Spect was performed 120 minutes after intravenous Tc-99 Myoview injection. The images were gated to evaluate regional wall motion and calculate ventricular ejection fraction. NUCLEAR IMAGE INTERPRETATION The rest and stress images show normal perfusion, normal contraction and thickening. LV Perfusion The perfusion of the left ventricle on the standard three tomographic images was within normal limits. Wall Motion normal LVEF of 65% CONCLUSION 1. The patient is a 72 year old female referred for an pharmacological stress test due to chest pain. She has a history of CAD, atrial fibrillation, hypertension and Type 2 DM. Her medicines include aspirin, clopidogrel, lovenox, atorvastatin, metoprolol and losartan. The resting EKG shows sinus rhythm. The patient was hooked-up to a continuous depilatory painter and lexiscan at a dose of 0.4 mg/5ml was injected intravenously. She tolerated the lexiscan well without any chest pain or EKG changes. The vital signs were stable and there weren't any side effects from the lexiscan. The perfusion of the left ventricle on the nuclear scans was within normal limits. The LVEF on the gated study was 65%. 2. Impression: Negative pharmacological stress test for ischemia. LVEF of 65%. Recommendation medical treatment
== END 2017-05-05 16:43 | disposition home or self-care (01) | DRG 310 ==
LOC: H.ER 18:35 → H.ERHOLD 21:07 → INTOOBSV 21:07 → H.TEL 05-04 00:25 → OBSVTOIN 05-04 16:25
PROVIDERS: ADMIT Internal Medicine; ATTEND Internal Medicine
PROC: 3E0234Z Introduction of Serum, Toxoid and Vaccine into Muscle, Percutaneous Approach (ICD-10-PCS; principal; 2017-05-04)
DX: I48.91 Unspecified atrial fibrillation (principal); I11.0 Hypertensive heart disease with heart failure; I50.9 Heart failure, unspecified; E11.65 Type 2 diabetes mellitus with hyperglycemia; I49.8 Other specified cardiac arrhythmias; I25.10 Atherosclerotic heart disease of native coronary artery without angina pectoris; E78.5 Hyperlipidemia, unspecified; J45.909 Unspecified asthma, uncomplicated; K21.9 Gastro-esophageal reflux disease without esophagitis; M81.0 Age-related osteoporosis without current pathological fracture; Z96.611 Presence of right artificial shoulder joint; Z23 Encounter for immunization; Z79.82 Long term (current) use of aspirin; Z79.83 Long term (current) use of bisphosphonates; Z86.73 Personal history of transient ischemic attack (TIA), and cerebral infarction without residual deficits